=== PATIENT | female | born 1995 ===

== ENCOUNTER 2018-10-24 12:21 | Emergency (ER) | payer SELFPAY ==
[2018-10-24 12:27] VITALS: O2SAT 99
[2018-10-24] MEDS ORDERED: Sodium Chloride 0.9% 1,000 ML IV STA (12:36)
--- NOTE | 2018-10-24 12:40 | ED PDOC ---
HPI: General Adult Time Seen by Provider: 10/24/18 12:38 Chief Complaint (Nursing): Flu-like Symptoms Chief Complaint (Provider): COUGH/FEVER History Per: Patient (22 Y/O FEMALE HERE FOR EVALUATION OF COUGH/FEVER/SOB/VOMITING YESTERDAY. DENIE ANY DIARRHEA. HAS USED ALBUTEROL NEB YESTERDAY. TOOK ADVIL COLD AND SINUS PRIOR TO ED ARRIVAL. NOTES TINGLING IN HANDS/FINGERTIPS. ) Past Medical History Reviewed: Historical Data, Nursing Documentation, Vital Signs Vital Signs: Last Vital Signs Temp 97 F L 10/24/18 12:23 Pulse 97 H 10/24/18 12:23 Resp 16 10/24/18 12:23 BP 115/66 10/24/18 12:23 Pulse Ox 99 10/24/18 12:23 - Medical History PMH: Asthma - Family History Family History: States: No Known Family Hx - Immunization History Hx Tetanus Toxoid Vaccination: No Hx Influenza Vaccination: No Hx Pneumococcal Vaccination: No - Home Medications Home Medications: Ambulatory Orders Medication Instructions Recorded Bacitracin Ointment [Bacitracin] 30 gm TOP BID #1 tube 07/16/17 Ibuprofen [Motrin] 600 mg PO Q8 PRN #21 tab 10/24/18 Oseltamivir Cap [Tamiflu] 75 mg PO BID #10 cap 10/24/18 Promethazine/Codeine 5 ml PO Q12 PRN #100 ml 10/24/18 [Codeine/Promethazine 10 MG/5 Ml-6.25 MG/5 Ml] - Allergies Allergies/Adverse Reactions: Allergies Allergy/AdvReac Type Severity Reaction Status Date / Time Penicillins Allergy Verified 07/16/17 15:00 Review of Systems ROS Statement: Except As Marked, All Systems Reviewed And Found Negative Physical Exam - Reviewed Nursing Documentation Reviewed: Yes Vital Signs Reviewed: Yes - Physical Exam Appears: Positive for: Well, Non-toxic, No Acute Distress (APPEARS ANXIOUS. MILD ELEVATED RESPIRATORY RATE) Head Exam: Positive for: ATRAUMATIC, NORMAL INSPECTION, NORMOCEPHALIC Skin: Positive for: Normal Color, Warm, DRY Eye Exam: Positive for: EOMI, Normal appearance, PERRL ENT: Positive for: Normal ENT Inspection Neck: Positive for: Normal, Painless ROM Cardiovascular/Chest: Positive for: Regular Rate, Rhythm Respiratory: Positive for: CNT, Normal Breath Sounds Gastrointestinal/Abdominal: Positive for: Normal Exam, Soft Back: Positive for: Normal Inspection Extremity: Positive for: Normal ROM Neurologic/Psych: Positive for: Alert, Oriented - Laboratory Results Result Diagrams: 10/24/18 13:01 10/24/18 13:01 - ECG O2 Sat by Pulse Oximetry: 99 - Progress ED Course And Treament: PATIENT INSTRUCTED ON HYPERVENTILATION AND GIVEN MASK TO ASSIST WITH TINGLING SENSATION IN HANDS NS 1 LITER 500 ML PER HOUR INFLUENZA A/B NEG RAPID STREP NEG TORADOL 15 MG IV X 1 DOSE Disposition - Clinical Impression Clinical Impression: Influenza-like symptoms, Hyperventilation syndrome - Patient ED Disposition Is Patient to be Admitted: No - Disposition Referrals: [facility] [Outside] Disposition: Routine/Home Disposition Time: 14:56 Condition: FAIR Prescriptions: Ibuprofen [Motrin] 600 mg PO Q8 PRN #21 tab PRN Reason: Pain, Mild (1-3) Oseltamivir Cap [Tamiflu] 75 mg PO BID #10 cap Promethazine/Codeine [Codeine/Promethazine 10 MG/5 Ml-6.25 MG/5 Ml] 5 ml PO Q12 PRN #100 ml PRN Reason: Cough Instructions: Flu, Adult (DC), Hyperventilation Forms: [facility] ED School/Work Excuse
[2018-10-24 13:05] LABS: EOS % 0.1 % (0.0-4.0); HEMOGLOBIN 13.7 g/dL (12.0-16.0); LYMPH # 0.3 K/uL (1.0-4.3); LYMPH % 1.8 % (20.0-40.0); MEAN CELL VOLUME 83.8 fl (81.0-99.0); MEAN CORPUSCULAR HGB CONC 32.3 g/dL (33.0-37.0); MEAN PLATELET VOLUME 9.5 fl (7.2-11.7); MONO # 1.1 K/uL (0.0-0.8); MONO % 6.5 % (0.0-10.0); NEUT # 15.3 K/uL (1.8-7.0); NEUT % 91.6 % (50.0-75.0); PLATELET COUNT 232 K/uL (130-400); RBC 5.08 Mil/uL (3.80-5.20); RED CELL DISTRIBUTION WIDTH 15.4 % (11.5-14.5); WHITE BLOOD COUNT 16.7 K/uL (4.8-10.8)
[2018-10-24 13:24] LABS: BLOOD UREA NITROGEN 12 mg/dl (7-17); CALCIUM 9.8 mg/dL (8.4-10.2); GFR NON-AFRICAN AMERICAN > 60
[2018-10-24 14:06] LABS: BASOPHIL 1 % (0-2); LYMPHOCYTE 3 % (20-50); MONOCYTE 6 % (0-10); NEUTROPHIL 90 % (42-75); PLATELET ESTIMATE NORMAL (NORMAL); TOTAL CELLS COUNTED 100
[2018-10-24 14:07] LABS: ANISOCYTOSIS SLIGHT; GIANT PLATELETS PRESENT; TEARDROP CELLS SLIGHT
[2018-10-24 15:13] VITALS: BP 109/64; PULSE 87; RESP 18; TEMP 98.6
== END 2018-10-24 15:16 | disposition home or self-care (01) ==
LOC: H.ER 12:21
DX: J11.1 Influenza due to unidentified influenza virus with other respiratory manifestations (principal); F45.8 Other somatoform disorders; J45.909 Unspecified asthma, uncomplicated; Z88.0 Allergy status to penicillin
CPT/HCPCS: 80048; 81025; 83735; 85025; 87070; 87430; 87804; 96374; 96375; 99283; J1885; J2405; J7030